=== PATIENT | male | born 1975 | race Caucasian/White ===

== ENCOUNTER → 2017-03-27 | Outpatient (CLI) | payer MEDICARE, OTHER ==
[~2017-03-27] VITALS: Ht 182.9 cm; Wt 84.0 kg
[~2017-03-27] MED LIST: ASPI-1182 PO; ATOR40TA28 PO; CARV3 PO; DOCU100C33 PO; DOXY150T PO; FOLI1CAP2 PO; HYDR-309 PO; INSLAN SQ; INSU100V SQ; LISI-660 PO; SEVE400 PO; SIMV-260 PO
[2017-03-27 11:17] VITALS: BP 129/85
== END | disposition home or self-care (01) ==
LOC: SRCNTR 10:33
PROVIDERS: ATTEND Internal Medicine Clinical Cardiac Electrophysiology
DX: I11.0 Hypertensive heart disease with heart failure (principal); I50.9 Heart failure, unspecified; E11.9 Type 2 diabetes mellitus without complications; N19 Unspecified kidney failure; Z95.810 Presence of automatic (implantable) cardiac defibrillator; Z99.2 Dependence on renal dialysis; Z79.82 Long term (current) use of aspirin; Z79.4 Long term (current) use of insulin
CPT/HCPCS: 93005; G0463

== ENCOUNTER → 2017-04-03 | Outpatient (CLI) | payer MEDICARE, OTHER ==
[~2017-04-03] VITALS: Ht 182.9 cm; Wt 84.0 kg
[~2017-04-03] MED LIST changes: +DOXY100C40 PO; -DOXY150T PO; -FOLI1CAP2 PO; -HYDR-309 PO
[2017-04-03 11:09] VITALS: BP 131/79
== END | disposition home or self-care (01) ==
LOC: SRCNTR 10:26
PROVIDERS: ATTEND Internal Medicine Clinical Cardiac Electrophysiology
DX: Z45.02 Encounter for adjustment and management of automatic implantable cardiac defibrillator (principal); E11.9 Type 2 diabetes mellitus without complications; I11.0 Hypertensive heart disease with heart failure; I50.9 Heart failure, unspecified; Z79.4 Long term (current) use of insulin; Z79.82 Long term (current) use of aspirin
CPT/HCPCS: G0463

== ENCOUNTER → 2017-04-06 | Outpatient (CLI) | payer MEDICARE, MEDICAID ==
[~2017-04-06] VITALS: Ht 182.9 cm; Wt 87.0 kg
[2017-04-06 09:02] VITALS: BP 127/77
== END | disposition home or self-care (01) ==
LOC: SRCNTR 08:05
PROVIDERS: ATTEND Internal Medicine Clinical Cardiac Electrophysiology
DX: Z09 Encounter for follow-up examination after completed treatment for conditions other than malignant neoplasm (principal); Z95.810 Presence of automatic (implantable) cardiac defibrillator
CPT/HCPCS: G0463

== ENCOUNTER → 2017-04-17 | Outpatient (CLI) | payer MEDICARE, MEDICAID ==
[~2017-04-17] VITALS: Ht 182.9 cm; Wt 83.5 kg
[2017-04-17 11:10] VITALS: BP 133/79
== END | disposition home or self-care (01) ==
LOC: SRCNTR 10:44
PROVIDERS: ATTEND Internal Medicine Clinical Cardiac Electrophysiology
DX: Z45.02 Encounter for adjustment and management of automatic implantable cardiac defibrillator (principal); E11.9 Type 2 diabetes mellitus without complications; I11.0 Hypertensive heart disease with heart failure; I50.9 Heart failure, unspecified; N19 Unspecified kidney failure; Z79.4 Long term (current) use of insulin; Z79.82 Long term (current) use of aspirin; Z99.2 Dependence on renal dialysis
CPT/HCPCS: G0463

== ENCOUNTER → 2018-01-08 | Outpatient (CLI) | payer MEDICARE, MEDICAID ==
[~2018-01-08] VITALS: Ht 182.9 cm; Wt 79.5 kg
[2018-01-08 11:12] VITALS: BP 122/75
== END | disposition home or self-care (01) ==
LOC: SRCNTR 11:09
PROVIDERS: ATTEND Internal Medicine Clinical Cardiac Electrophysiology
DX: Z45.02 Encounter for adjustment and management of automatic implantable cardiac defibrillator (principal); I13.2 Hypertensive heart and chronic kidney disease with heart failure and with stage 5 chronic kidney disease, or end stage renal disease; E11.22 Type 2 diabetes mellitus with diabetic chronic kidney disease; N18.6 End stage renal disease; I50.9 Heart failure, unspecified; I42.9 Cardiomyopathy, unspecified; H54.7 Unspecified visual loss; Z99.2 Dependence on renal dialysis
CPT/HCPCS: G0463